=== PATIENT | female | born 1960 | race Caucasian/White ===

== ENCOUNTER → 2021-07-20 | Outpatient (CLI) | payer OTHER ==
[~2021-07-20] MED LIST: KRILL OIL 1,001 EAC1 PO; LEVOTHYROXINE125 MCG PO; PRINIVIL20 MG PO; TEMAZEPAM30 MG PO; VITAMIN D325 MC3 PO
[2021-07-20 09:39] LABS: MCH 30.9 pg (26.0-34.0); MCHC 34.2 g/dL (28.0-37.0); MCV 90.3 fL (80.0-100.0); RBC 4.54 mil/uL (4.20-5.00); RDW 12.6 % (10.5-14.5); URINE BILIRUBIN NEGATIVE (Negative); URINE BLOOD NEGATIVE (Negative); URINE CLARITY CLEAR; URINE COLOR YELLOW; URINE GLUCOSE-RANDOM* NEGATIVE (Negative); URINE KETONES NEGATIVE (Negative); URINE LEUKOCYTES-REFLEX NEGATIVE (Negative); URINE NITRITE-REFLEX NEGATIVE (Negative); URINE PROTEIN (DIPSTICK) NEGATIVE (Negative); URINE SPECIFIC GRAVITY <= 1.005 (1.005-1.035); URINE UROBILINOGEN 0.2 E.U./dl (0.2-1.0); WBC 5.2 thou/uL (4.0-11.0)
[2021-07-20 09:52] LABS: CALCIUM 9.8 mg/dL (8.5-10.1); CREATININE 0.9 mg/dL (0.6-1.0); POTASSIUM 4.7 mmol/L (3.5-5.1)
[2021-07-20 09:54] LABS: INR 0.94; PROTIME 10.3 Seconds (10.5-12.1)
--- NOTE | 2021-07-20 10:26 | EKG ---
[place] [address] [facility] [place] [address] ELECTROCARDIOGRAM REPORT Name: GALINDO PERAZA [id number] Admission: 07/20/21 Attend Phys: Jen Yo Discharge: Date of : 58 Report #: [id number] [facility] Test Date: 2021-07-20 Test Time: 09:33:55 Pat Name: GALINDO PERAZA Department: Room: Gender: F Family Practitioner: Isela DEAN : 1960 Requested By: Tomas Medrano Order Number: [id number] MD: Ravi Mcclure Measurements Intervals [place] Rate: 60 P: 3 MA: 173 QRS: 7 QRSD: 101 T: 13 QT: 401 QTc: 401 Interpretive Statements Sinus rhythm Ventricular premature complex Low voltage, precordial leads No previous ECG available for comparison Electronically Signed On 07-20-2021 10:25:37 ENTRY LEVEL ELECTRICIAN by Ravi Mcclure [email or web address] <ELECTRONICALLY SIGNED> By: Ravi Mcclure MD, [facility] 07/20/21 1025 0933 2 Ravi Mcclure MD, FACC /EPI
== END ==
LOC: PAC 05:51
PROVIDERS: ATTEND Orthopaedic Surgery
DX: Z01.818 Encounter for other preprocedural examination (principal); I49.3 Ventricular premature depolarization; I10 Essential (primary) hypertension; M13.862 Other specified arthritis, left knee

== ENCOUNTER → 2021-08-02 | Day surgery (SDC) | payer OTHER ==
[~2021-08-02] VITALS: Ht 160 cm; Wt 94.3 kg
[2021-08-02 10:29] VITALS: BP 160/83
[2021-08-02 15:31] VITALS: BP 160/83
== END | disposition home or self-care (01) ==
LOC: OR
PROVIDERS: ATTEND Orthopaedic Surgery
DX: M17.12 Unilateral primary osteoarthritis, left knee (principal); M25.562 Pain in left knee; I10 Essential (primary) hypertension; E03.9 Hypothyroidism, unspecified; G47.30 Sleep apnea, unspecified; Z98.890 Other specified postprocedural states; Z20.822 Contact with and (suspected) exposure to COVID-19; Z79.899 Other long term (current) drug therapy; Z87.891 Personal history of nicotine dependence; Z98.51 Tubal ligation status; Z90.49 Acquired absence of other specified parts of digestive tract; Z88.0 Allergy status to penicillin
CPT/HCPCS: 50010; 50101; 50415; 50954; 51130; 51225; 53000; 53078; 53365; 56527; 56528; 57095; 57103; 57110; 57180; 58637; 59024; 62110; 62900; 64043; 65060; 70005